=== PATIENT | male | born 1985 | race African-American/Black ===

== ENCOUNTER 2016-08-07 20:21 | Emergency (ER) | payer BC ==
[2016-08-07 20:26] VITALS: BP 149/82; PULSE 96; TEMP 97.8; BMI 38.7
--- NOTE | 2016-08-07 20:57 | PDOC ---
History of Present Illness - General Chief Complaint: Eye Problem Stated Complaint: EYE PROBLEM Time Seen by Provider: 08/07/16 20:37 History Source: Patient - History of Present Illness Timing/Duration: other (this am) Past History - Past Medical History Allergies/Adverse Reactions: Allergies Allergy/AdvReac Type Severity Reaction Status Date / Time No Known Allergies Allergy Verified 08/07/16 20:24 Home Medications: Ambulatory Orders No Home Medications 0 dose .ROUTE UTDICT 11/16/12 Erythromycin 0.5% Eye Ointment [Erythromycin 0.5% Eye Ointment -] 1 applic OS DAILY #1 tube 08/07/16 Ibuprofen [Motrin -] 800 mg PO Q6H #30 tablet 08/07/16 Other medical history: denies - Immunization History Td Vaccination: No (unknown) - Psycho/Social/Smoking Cessation Hx Anxiety: No Suicidal Ideation: No Smoking Status: No Smoking History: Never smoked Years of Tobacco Use: 0 Number of Cigarettes Smoked Daily: 0 Cigars Per Day: 0 Review of Systems - Review of Systems Constitutional: No: Chills, Fever HEENTM: Yes: Eye Pain, Blurred Vision. No: Tearing *Physical Exam - Vital Signs Last Vital Signs Temp Pulse Resp BP Pulse Ox 97.8 F 96 H 18 149/82 100 08/07/16 20:25 08/07/16 20:25 08/07/16 20:25 08/07/16 20:25 08/07/16 20:25 - Physical Exam General Appearance: Yes: Appropriately Dressed. No: Apparent Distress HEENT: positive: Normal Voice, Other (no conjunc erythmea, tearin or discharge, no fb on lid eversion, OD 20/20, OS 20/30, OU 20/20). negative: Scleral Icterus (R), Scleral Icterus (L) Neck: positive: Supple Respiratory/Chest: negative: Respiratory Distress Integumentary: positive: Dry, Warm Neurologic: positive: Fully Oriented, Alert, Normal Mood/Affect Medical Decision Making - Medical Decision Making 08/07/16 20:52 31 yo male, no sig hx, here w/ scratchy sensation to left eye that patient awoke with this a.m. Now complaining of blurry vision. No tearing, discharge or photophobia. Denies any trauma or contact lens use. Patient states he went to [facility] earlier today and told he might have an ulcer and referred to ER to be seen by crimping press operator. Patient well-appearing and stable in ED with with what appears to be a large area of uptake in L eye in 3 0' clock position c/w abrasion, less likely ulcer and no dendritic pattern to suspect herpes. Case d/ w Dr Orourke who also evaluated pt. Tetanus updated in ED and pt sent home w/ abx ointment and optho referral given that abrasion take up ~1/4 of corneal surface *DC/Admit/Observation/Transfer Diagnosis at time of Disposition: Corneal abrasion Qualifiers: Encounter type: initial encounter Laterality: left Qualified Code(s): S05.02XA - Injury of conjunctiva and corneal abrasion without foreign body, left eye, initial encounter - Discharge Dispostion Disposition: HOME Condition at time of disposition: Improved - Prescriptions Prescriptions: Erythromycin 0.5% Eye Ointment [Erythromycin 0.5% Eye Ointment -] 1 applic OS DAILY #1 tube Ibuprofen [Motrin -] 800 mg PO Q6H #30 tablet - Referrals Referrals: Ravinder Jeter [Primary Care Provider] - Ami Solis MD [Staff Physician] - - Patient Instructions Printed Discharge Instructions: Corneal Abrasion Additional Instructions: Follow with ophthalmology as needed - Post Discharge Activity Work/School Note: Back to Work
[2016-08-07] MEDS ORDERED: IBUPROFEN 400 MG TABLET (FP) PO ONE ×2 (21:01→21:06)
[2016-08-07] MEDS ORDERED: DIPHTH,PERTUSS(ACELL),TET 0.5 ML DISP.SYRIN IM ONE (21:01)
[2016-08-07] MEDS ORDERED: ERYTHROMYCIN 0.5% OPHTHALMIC OINTMENT 3.5 GM TUBE ONE (21:18)
== END 2016-08-07 21:19 | disposition home or self-care (01) ==
LOC: JERFT 20:21
PROC: 3E0234Z Introduction of Serum, Toxoid and Vaccine into Muscle, Percutaneous Approach (ICD-10-PCS; principal; 2016-08-07)
DX: S05.02XA Injury of conjunctiva and corneal abrasion without foreign body, left eye, initial encounter (principal); X58.XXXA Exposure to other specified factors, initial encounter; Y93.9 Activity, unspecified
CPT/HCPCS: 90715; 99281-25